=== PATIENT | female | born 1965 | race Hispanic/Latino ===

== ENCOUNTER 2019-07-25 12:44 | Outpatient (CLI) | payer BC ==
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
== END 2019-07-25 12:45 | disposition home or self-care (01) ==
LOC: BICRAD 12:44
PROVIDERS: ATTEND Physician Assistant Medical
DX: M54.5 Low back pain (principal); R07.9 Chest pain, unspecified; R06.00 Dyspnea, unspecified; M46.96 Unspecified inflammatory spondylopathy, lumbar region
CPT/HCPCS: 36415; 71046; 72100; 72220; 80053; 81001; 84439; 84443; 84481; 85025; 85379; 87086

== ENCOUNTER 2021-07-01 08:21 | Outpatient (CLI) | payer OTHER | END 2021-07-01 08:22 | disposition home or self-care (01) | LOC: BICULT 08:21 | PROVIDERS: ATTEND Nurse Practitioner Family | DX: R10.32 Left lower quadrant pain (principal); R10.12 Left upper quadrant pain; K76.0 Fatty (change of) liver, not elsewhere classified | CPT/HCPCS: 76700 ==

== ENCOUNTER 2022-01-23 13:53 | Outpatient (CLI) | payer BC | END 2022-01-23 13:54 | disposition home or self-care (01) | LOC: BICULT 13:53 | PROVIDERS: ATTEND Nurse Practitioner Family | DX: R10.32 Left lower quadrant pain (principal); R93.89 Abnormal findings on diagnostic imaging of other specified body structures | CPT/HCPCS: 76856 ==

== ENCOUNTER 2023-05-25 08:07 | Outpatient (CLI) | payer BC | END 2023-05-25 08:08 | disposition home or self-care (01) | LOC: BICMAMMO 08:07 | PROVIDERS: ATTEND Physician Assistant | DX: N63.10 Unspecified lump in the right breast, unspecified quadrant (principal); R92.8 Other abnormal and inconclusive findings on diagnostic imaging of breast; N63.42 Unspecified lump in left breast, subareolar; N60.02 Solitary cyst of left breast | CPT/HCPCS: G0279 ==